=== PATIENT | female | born 1960 | race Caucasian/White ===

== ENCOUNTER 2020-04-22 15:16 | Emergency (ER) | payer MEDICAID ==
[~2020-04-22] VITALS: Ht 160 cm; Wt 45.4 kg
[~2020-04-22 15:16] MED LIST: AEROCHAMBER MI1 EACH MC; AEROECLIPSE II1 EACH INH; AMITRIPTYLINE H25 M4 PO; AMOXICILLIN 50500 M1 PO; CELEXA; CELEXA 20 MG TA20 MG PO; CEPHALEXIN 250250 M1; DUONEB 2.5-0.5 M3 ML INH; ELAVIL PO; HYDROCODON-ACE1 EAC5 PO; HYDROCODON-ACE1 EAC8 PO; LEVAQUIN 500 M500 MG PO; LEVOTHROID; MIRALAX255 GM PO; NEXIUM40 MG PO; NORCO 5-325 TA1 EACH PO; OXYCONTIN10 M1 PO; OXYCONTIN20 M1 PO; PERCOCET 5-3251 EACH PO; PERCOCET 7.5-31 EACH PO; PREVACID DIS; PROAIR HFA8.5 GM INH; PROTONIX 20 MG20 M1 PO; PROTONIX40 M2 PO; TIROSINT75 MCG PO; XANAX 0.5 MG0.5 MG PO; ZOCOR; ZYRTEC10 M2 PO
[2020-04-22] MEDS ORDERED: NORCO 5-325 TA1 EAC2 PO (15:41)
[2020-04-22 15:58] VITALS: BP 146/98
== END 2020-04-22 15:59 | disposition home or self-care (01) ==
LOC: M.ERS 15:16
DX: S93.491A Sprain of other ligament of right ankle, initial encounter (principal); M25.471 Effusion, right ankle; I10 Essential (primary) hypertension; E03.9 Hypothyroidism, unspecified; Z90.710 Acquired absence of both cervix and uterus; Z88.6 Allergy status to analgesic agent; X50.1XXA Overexertion from prolonged static or awkward postures, initial encounter; Y93.89 Activity, other specified; Y92.89 Other specified places as the place of occurrence of the external cause; Y99.8 Other external cause status